=== PATIENT | male | born 1980 | race Caucasian/White ===

== ENCOUNTER 2017-03-10 09:27 | Emergency (ER) | payer OTHER ==
--- NOTE | 2017-03-10 10:08 | EDM.PDOC ---
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 There was immediate pain adjacent to thumbnail, with some discoloration. There was limited movement at the IP joint with a minor abrasion dorsally. He came to [facility] ED for managment. His tetanus vax status needs updating. LEFT THUMB Pain Score (Numeric/FACES): 7 - Related Data Allergies Allergy/AdvReac Type Severity Reaction Status Date / Time No Known Allergies Allergy Verified 03/10/17 09:40 Home Meds: Home Meds Omeprazole 40 mg PO DAILY 12/12/13 [History] Past Medical History Gastrointestinal History: Reports: GERD Genitourinary History: Reports: Renal Calculus - Past Surgical History GI Surgical History: Reports: Appendectomy Male Surgical History: Reports: Other (See Below) Other Male Surgeries/Procedures: hernia repair Social & Family History - Family History Family Medical History: Noncontributory - Tobacco Use Smoking Status *Q: Current Every Day Smoker Years of Tobacco use: 24 Packs/Tins Daily: 2 - Caffeine Use Caffeine Use: Reports: Coffee, Energy Drinks, Soda - Alcohol Use Days Per Week of Alcohol Use: 1 Number of Drinks Per Day: 2 Total Drinks Per Week: 2 - Recreational Drug Use Recreational Drug Use: No Drug Use in Last 12 Months: No Review of Systems - Review of Systems Review Of Systems: See Below Constitutional: Reports: No Symptoms Eyes: Reports: No Symptoms Ears: Reports: No Symptoms Nose: Reports: No Symptoms Mouth/Throat: Reports: No Symptoms Respiratory: Reports: No Symptoms Cardiovascular: Reports: No Symptoms GI/Abdominal: Reports: No Symptoms Genitourinary: Reports: No Symptoms Musculoskeletal: Reports: Hand Pain (distal L thumb) Skin: Reports: Wound (minor dorsal abrasion of distal L thumb), Change in Hair/ Nails (discoloration of proximal L thumbnail) Neurological: Reports: No Symptoms Psychiatric: Reports: No Symptoms ED EXAM, GENERAL - Physical Exam Exam: See Below Exam Limited By: No Limitations General Appearance: Alert, WD/WN, No Apparent Distress Head: Atraumatic Neck: Normal Inspection, Supple, Full Range of Motion Respiratory/Chest: Lungs Clear Cardiovascular: Regular Rate, Rhythm Back Exam: Normal Inspection Extremities: Normal Capillary Refill, Other (minor abrasion of dorsal thumb near proximal margin of nail; discoloration of proximal thumbnail; some loss of full flexion at IP joint) Neurological: Alert, Oriented, CN II-XII Intact, Normal Gait, No Motor/Sensory Deficits Psychiatric: Normal Affect, Normal Mood Skin Exam: Warm, Dry, Other (abrasion L thumb) Lymphatic: No Adenopathy ED TRAUMA EXTREMITY PROCEDURES - Additional/Other Procedure(s) Other (Free Text) Procedure(s): With patient consent, the proximal L thumbnail was trephined x 2 with portable surgical cautery wand, with immediate evacuation of BRB. Patient tolerated procedure well. Course - Vital Signs Text/Narrative:: The x rays of L thumb were negative for fx. A bandaid was applied. Last Recorded V/S: Last Vital Signs Temp 36.7 C 03/10/17 09:30 Pulse 86 03/10/17 09:30 Resp 15 03/10/17 09:30 BP 119/82 03/10/17 09:30 Pulse Ox 96 03/10/17 09:30 - Orders/Labs/Meds Orders: Active Orders 24 hr Category Date Time Status Fingers Thumb Lt FA [CR] Stat Exams 03/10/17 10:01 Ordered Departure - Departure Time of Disposition: 10:34 Disposition: Home, Self-Care 01 Condition: Good Clinical Impression: Subungual hematoma of left thumb - Discharge Information Referrals: Brayden Deluna MD [Primary Care Provider] - Forms: ED Department Discharge - Problem List & Annotations (1) Subungual hematoma of left thumb SNOMED Code(s): 388477919 Code(s): S60.112A - CONTUSION OF LEFT THUMB WITH DAMAGE TO NAIL, INIT ENCNTR Status: Acute Current Visit: Yes Qualifiers: Encounter type: initial encounter Qualified Code(s): S60.112A - Contusion of left thumb with damage to nail, initial encounter - Problem List Review Problem List Initiated/Reviewed/Updated: Yes - My Orders Last 24 Hours: My Active Orders 03/10/17 10:01 Fingers Thumb Lt FA [CR] Stat - Assessment/Plan Last 24 Hours: My Active Orders 03/10/17 10:01 Fingers Thumb Lt FA [CR] Stat Plan: Local cares, and return to work without restriction.
[2017-03-10 11:01] VITALS: BP 115/75
--- NOTE | 2017-03-10 14:44 | CR ---
INDICATION: Hit left thumb with a hammer. LEFT THUMB: Three views of the left thumb revealed sclerotic density through most of the shaft and a portion of the proximal metaphysis of the proximal phalanx of the thumb, compatible with a benign bone island. It also extends into the distal metaphysis. A fracture, dislocation, or other significant bone or joint abnormality was not identified. MTDD
== END 2017-03-10 10:45 | disposition home or self-care (01) ==
LOC: FB.ED 09:27
PROC: 0H9QXZZ Drainage of Finger Nail, External Approach (ICD-10-PCS; principal; 2017-03-10)
DX: S60.112A Contusion of left thumb with damage to nail, initial encounter (principal); W27.8XXA Contact with other nonpowered hand tool, initial encounter; Y92.69 Other specified industrial and construction area as the place of occurrence of the external cause; Y99.0 Civilian activity done for income or pay; K21.9 Gastro-esophageal reflux disease without esophagitis; Z79.899 Other long term (current) drug therapy; F17.210 Nicotine dependence, cigarettes, uncomplicated
CPT/HCPCS: 11740; 73140-FA; 99000; 99283

== ENCOUNTER 2023-02-12 08:06 | Day surgery (SDC) | payer OTHER ==
[2023-02-12] MEDS ORDERED: Propofol 200 MG/20 ML SDV IV ONE (08:07)
[2023-02-12] MEDS ORDERED: Lidocaine 2% 5 ML SDV IV ONE (08:07)
[2023-02-12] MEDS ORDERED: Midazolam 1 MG/ML 2 ML SDV IV ONE (08:07)
[2023-02-12] MEDS ORDERED: Glycopyrrolate 0.2 MG/ML 5 ML MDV IV ONE (08:07)
[2023-02-12] MEDS ORDERED: Sodium Chloride 0.9% 10 ML Syringe FLUSH PRN (08:30)
[2023-02-12] MEDS ORDERED: Lactated Ringers 1,000 ML IV SCH (08:30)
[2023-02-12 11:34] VITALS: BP 121/88; PULSE 82
== END 2023-02-12 11:30 | disposition home or self-care (01) ==
LOC: FB.SDS 08:06
PROVIDERS: ATTEND Surgery
DX: K21.00 Gastro-esophageal reflux disease with esophagitis, without bleeding (principal); K31.A0 Gastric intestinal metaplasia, unspecified; K31.89 Other diseases of stomach and duodenum; K44.9 Diaphragmatic hernia without obstruction or gangrene; K29.70 Gastritis, unspecified, without bleeding; F17.210 Nicotine dependence, cigarettes, uncomplicated; Z79.899 Other long term (current) drug therapy; Z98.890 Other specified postprocedural states; Z68.29 Body mass index [BMI] 29.0-29.9, adult; Z90.49 Acquired absence of other specified parts of digestive tract
CPT/HCPCS: 00731; 43239; 88305; 88342; J2250; J2704; J3490; J7120

== ENCOUNTER 2024-05-20 06:47 | Day surgery (SDC) | payer OTHER ==
[2024-05-20] MEDS ORDERED: Propofol 200 MG/20 ML SDV IV ONE (06:48)
[2024-05-20] MEDS ORDERED: Midazolam 1 MG/ML 2 ML SDV IV ONE (06:48)
[2024-05-20] MEDS ORDERED: fentaNYL 100 MCG/2 ML SDV IV ONE (06:48)
[2024-05-20] MEDS ORDERED: Sodium Chloride 0.9% 10 ML Syringe FLUSH PRN (07:00)
[2024-05-20] MEDS: Lactated Ringers 1,000 ML IV SCH (07:44)
[2024-05-20] MEDS: Simethicone Drops 40 MG/0.6 ML 30 ML Bottle ONE (08:22)
[2024-05-20 10:04] VITALS: BP 123/87; PULSE 66
[2024-05-22 16:30] LABS: LACTOFERRIN,FECAL BY ELISA Negative (Negative)
[2024-05-23 01:10] LABS: ADENOVIRUS 40/41 PCR Not Detected; ASTROVIRUS PCR Not Detected; CAMPYLOBACTER PCR Not Detected; CRYPTOSPORIDIUM PCR Not Detected; CYCLOSPORA CAYETANENSIS PCR Not Detected; ENTAMOEBA HISTOLYTICA PCR Not Detected; ENTEROAGGREGATIVE E. COLI PCR Not Detected; ENTEROPATHOGENIC E. COLI PCR Not Detected; ENTEROTOXIGENIC E. COLI PCR Not Detected; GIARDIA LAMBLIA PCR Not Detected; NOROVIRUS GI/GII PCR Not Detected; PLESIOMONAS SHIGELLOIDES PCR Not Detected; ROTAVIRUS A PCR Not Detected; SALMONELLA PCR Not Detected; SAPOVIRUS PCR Not Detected; SHIG/ENTEROINVASIVE E COLI PCR Not Detected; SHIGA TOXIN-PRODUC E. COLI PCR Not Detected; VIBRIO CHOLERAE PCR Not Detected; VIBRIO PCR Not Detected; YERSINIA ENTEROCOLITICA PCR Not Detected
== END 2024-05-20 09:39 | disposition home or self-care (01) ==
LOC: FB.SDS 06:47
PROVIDERS: ATTEND Surgery
DX: K63.5 Polyp of colon (principal); K57.30 Diverticulosis of large intestine without perforation or abscess without bleeding; K21.9 Gastro-esophageal reflux disease without esophagitis; F17.210 Nicotine dependence, cigarettes, uncomplicated; Z79.899 Other long term (current) drug therapy; Z80.0 Family history of malignant neoplasm of digestive organs
CPT/HCPCS: 00811; 83630; 87507; 88305; A9270-GY; J2250; J2704; J3010; J7120